=== PATIENT | female | born 1995 | race Hispanic/Latino ===

== ENCOUNTER 2017-04-22 10:00 | Inpatient (IN) | payer OTHER ==
[~2017-04-22] VITALS: Ht 149.9 cm; Wt 102.5 kg
[2017-04-22 11:25] LABS: Mean Corpuscular Hemoglobin 30.1 pg (27.0-35.0); Mean Corpuscular Volume 87.6 fL (81-100)
[2017-04-22] MEDS ORDERED: Lactated Ringer's 1,000 ML IV PRN (13:47)
--- NOTE | 2017-04-22 13:47 | DRSVH ---
PROCEDURE: US OB FOLLOW UP GROWTH AND BIOPHYSICAL PROFILE AND UMBILICAL DOPPPLER INDICATIONS: 21 year-old female with polyhydramnios. OUTSIDE/PRIOR DATING DATA: Last menstrual period (LMP): August 10, 2016. LMP-based estimated date of delivery (PARTHA): May 17, 2017. First dating scan (date and location): October 08, 2016 at [facility]. Estimated date of delivery (PARTHA) from first dating scan: May 12, 2017. TECHNIQUE: Real-time scanning was performed of the fetus, with image documentation and biometric alex surements. Biophysical profile was also obtained. COMPARISON: [facility], US, US OB FU GROWTH+BPP+UMB DOP, 04/11/2017, 22:33. [facility] Ultrasound, US, US OB REEVAL INCOMP ANATMY LTD, 03/04/2017, 11:36. [facility] s Ultrasound, US, US OB REEVAL INCOMP ANATMY LTD, 01/18/2017, 8:45. [facility] Ultrasoun d, US, US OB>14 WKS ANATOMY COMP, 01/03/2017, 11:49. [facility], US, US OB<14 WKS+OB HANNA SVAG, 10/08/2016, 9:56. FINDINGS: General: A single living intrauterine gestation is present. Presentation: Vertex. Placenta: Placental position is anterior and right, without previa. OB-BUNCHER HAND Ultrasound Procedure Report Summary Fetus Summary Estimated Gestational Age by first dating scan: 37 weeks, 1 day Composite Gestational Age by present scan: 38 weeks, 0 days Estimated Weight (EFW): 3533 g EFW percentile rank: 89 % Heart Rate: 149 bpm Findings(Amniotic Sac) Amniotic Fluid Index: 21.90 cm Pelvis and Uterus Cervix Length (Mean): Obscured by cranium. Biometry BiometryGroup Biparietal Diameter (Mean): 8.97 cm Gestational Age (BPD): 36 weeks, 2 days Head Circumference (Mean): 32.93 cm Gestational Age (HC): 37 weeks, 3 days Abdominal Circumference (Mean): 35.44 cm Gestational Age (AC): 39 weeks, 2 days Femur Length (Mean): 7.56 cm Gestational Age (FL): 38 weeks, 5 days Biophysical Profile Tone: 2 Gross Body Movement: 2 Breathin Amniotic Fluid Volume: 2 Biophysical Profile Sum Score: 8 Findings(Pelvic Vascular Structure) Umbilical Artery S/D Ratio: 2.0-2.5. IMPRESSION: 1. Single living intrauterine gestation demonstrates appropriate interval growth. Estimated elpidio ght is now at the 89th percentile for gestational age. 2. Amniotic fluid index is now within the upper normal range at 22 cm. 3. Fetus scores 8 of 8 points biophysical profile. 4. Normal umbilical artery Doppler interrogation, with preserved maternal diastolic flow to the fetus . Dictated by: Ethan Enriquez M.D. on 04/22/2017 at 13:39 Approved by: Ethan Enriquez M.D. on 04/22/2017 at 13:45
[2017-04-22] MEDS ORDERED: Ondansetron 2 mg/mL 2 mL Inj IVPUSH PRN (13:50)
[2017-04-22] MEDS ORDERED: Carboprost 250 mCg/mL Inj IM PRN (13:50)
[2017-04-22] MEDS ORDERED: Sodium Chloride LOK Flush 10 mL Syringe IVFLUSH PRN (13:50)
[2017-04-22] MEDS ORDERED: Hemorrhage Kit, Post Partum XX ONE (13:50)
[2017-04-22] MEDS ORDERED: MAGNESIUM SULF IV ONE ×2 (13:50→15:05)
[2017-04-22] MEDS ORDERED: Methylergonovine 0.2 mg/mL Inj IM PRN (13:50)
[2017-04-22] MEDS ORDERED: Oxytocin 30 Units/500 mL LR 30 UNITS in IV Premix 1 EACH IV PRN (13:50)
[2017-04-22] MEDS ORDERED: Oxytocin 10 Unit/mL Inj IM PRN (13:50)
[2017-04-22] MEDS ORDERED: [UNRECOGNIZED DRUG - OTHER] IV ONE ×2 (13:50→15:05)
--- NOTE | 2017-04-22 14:29 | PCM.HPOB ---
Subjective Date of Service: Apr 22, 2017 Referring Provider: Admitting Physician: Sebastian Garcia MD Primary Care Physician: Nopcp Attending Physician: Sebastian Garcia MD Chief Complaint Induction of labor due to mild pre-eclampsia History of Present History of Present Illness Patient is a 21 y.o. F , LMP 08/10/17, PARTHA 05/17/17 at [id number] admitted for induction of labor due to severe pre-eclampsia. History of major depression previously on Lamictal and prozac, patient restarted prozac 20 mg at 28 wks. Presented to [facility] 03/04/17 at 29wk for dizziness and noted to be pre- eclamptic. Started propranolol at 35wk for Bp 150's/110's, 35 wk US showed polyhydramnios FRANNIE 33, EFW 15% and induction scheduled for 37 weeks. Today patient presented to [facility] with complaints of headache, elevated BP 160's/80 's, prot/cr ration 1.56, random protein 86, Cr 0.5, Wct 17, hgb 11.9 hct 34.7. Decision made to admit patient to [facility] for induction of labor and monitoring OB History: (2), Para (0), (1), Living (0) Obstetrical Complications: Pre-eclampsia Past Medical History Obstetrical History: One prior SAB Gynecologic History: No history of STI last pap normal Medical History: Major depressive disorder Surgical History: None reported Social History: lives with family Hx Tobacco Use: Yes Smoking Status: Former Smoker (10 pk/yrs) Hx Alcohol Use: No Hx Substance Use: No Past Family History Family History family history of HTN,DM, hypercholesteremia Living Arrangement: with Family Genetic Screening/Counseling Genetic Screening/Counseling: Negative Review of Systems Constitutional: Y: Dizziness, Malaise, Change of appitite, Chills Eyes: Resports: Blurred Vision, Vision Changes ENT: Denies: Ear Discharge, Ear Pain Cardiovascular: Denies: Chest Pain, Edema, Orthopnea Respiratory: Denies: Cough, Cough with bloody sputum, Pleuritic Chest Pain Gastrointestinal: Reports: Nausea, Denies: Abdominal Pain, Epigastric pain, Heartburn, Vomiting Genitourinary: Reports: Hematuria, Denies: Dysuria Musculoskeletal: Denies: Redness, Swelling Skin/Breasts: Denies: Bruising Neurological: Reports: Dizziness, Other (headache) Medications Home medications Prozac 20 mg vitamin Propranolol Allergy Coded Allergies: No Known Allergies (Verified Allergy, Unknown, 05/01/17) Exam Vital Signs HR 80 BP 166/77 Exam FHR 140 moderate variability, reactive category I Constitutional: Well-developed, Well-nourished HEENT: Atraumatic, PERRLA, EOMI, Scleral Anicteric Lungs: Clear to Percussion, Normal Air Movement Heart: Regular Rate/Rhythm, Normal S1, Normal S2, No Murmurs/Rubs/Gallops Abdomen: Gravid (consistent with ), Normal bowel sounds Extremities: Pulses Palpable x4, Warm, Edema (up to knee non pitting) Neurological/Psychiatric: Oriented X3, Cooperative Additional Information Dilation 1 cm Effacement 60 station -4 Labs/Diagnostics Labs hgb 14.3 hct 42.4 rubella immune varicella immune RPR non ractive Hep B negative HIV neg hep C neg THS 0.502 A1C 5.6 UA neg Ultra Sound 04/22/17 Presentation Vertex Placenta anterior right FRANNIE 22 BPP 03/22 EFW 89% 3533 g Lab/Diagnostic Information Laboratory Tests 72 Hours Test 04/22/17 11:19 White Blood Count 17.9th/mm3 (3.8-10.1) Red Blood Count 3.96mil/mm3 (3.90-5.20) Hemoglobin 11.9g/dL (12.0-15.6) Hematocrit 34.7% (35.0-46.0) Mean Corpuscular Volume 87.6fL (81-100) Mean Corpuscular Hemoglobin 30.1pg (27.0-35.0) Mean Corpuscular Hemoglobin Concent 34.3% (32.0-37.0) Red Cell Distribution Width 14.5% (12.3-15.4) Platelet Count 203bil/L (150-400) Hematology Comments Urine Random Creatinine 55mg/dL (16-392) Urine Random Total Protein 86mg/dL (0-15) Urine Protein/Creatinine Ratio 1.56 (0-200) Blood Urea Nitrogen 10mg/dL (6-20) Creatinine 0.50mg/dL (0.57-1.00) Uric Acid 5.8mg/dL (2.6-7.2) Aspartate Amino Transf (AST/SGOT) 15U/L (0-50) Alanine Aminotransferase (ALT/SGPT) 11U/L (0-32) Maternal Blood Type: O (postive) Hx Rho(D) Immune Globulin: No Group B Strep Results: Negative Previous with GBS: No OB Intrapartum Assessment/Plan Assessment Patient is a 21 y.o. F , LMP 08/10/17, PARTHA 05/17/17 at [id number] admitted for induction of labor due to severe pre-eclampsia at 36 weeks 3 days with active symptoms Problems: (1) Severe pre-eclampsia Plan: Admit to [facility] for induction of labor due to severe pre-eclampsia Start IV IVF LR 125 mls/hr Start IV magnesium 6 gm bolus Continue IV mag 2 gm every 2 hours Hypertensive protocol in place Labetalol 10 mg IV, if sustained elevated BP call provider Tylenol 625 mg Q8 pain Consult placed for epidural Start induction with Cytotec, cervix not favorable for Pitocin Cytotec 25 mg intravaginally every 4 hours Vitals Q4 Status: Resolved ICD Code: O14.10 Attending Statement The patient was seen and examined together with Dr. Ga Raines on 04/22/2017 and I agree with the history, exam and plan as outlined in the note above. GA RAINES DO Apr 22, 2017 14:29 Sebastian Garcia MD May 02, 2017 13:50
[2017-04-22] MEDS ORDERED: Magnesium Sulf 2 Gm/50mL Water 2 GM in IV Premix 1 EACH IV SCH ×2 (14:30→16:30)
[2017-04-22] MEDS ORDERED: hydrALAZINE 20 mg/mL Inj IVPUSH PRN (14:50)
[2017-04-22] MEDS ORDERED: Calcium GLUCOnate 10% (Gm) 1 Gm/10 mL Inj IV PRN (15:05)
[2017-04-22] MEDS: Lactated Ringer's 1,000 ML IV SCH (15:19)
[2017-04-22] MEDS: Magnesium Sulf 20 Gm/500mL H2O 20 GM in IV Premix 1 EACH IV SCH (15:49)
[2017-04-22] MEDS: Misoprostol 25 mCg/0.25 Tablet VAGINAL SCH ×2 (15:56→20:56)
[2017-04-23] MEDS: Misoprostol 25 mCg/0.25 Tablet VAGINAL SCH ×5 (01:25→13:50)
[2017-04-23] MEDS: Magnesium Sulf 20 Gm/500mL H2O 20 GM in IV Premix 1 EACH IV SCH ×3 (01:26→19:44)
[2017-04-23] MEDS: Lactated Ringer's 1,000 ML IV SCH ×4 (05:47→18:08)
[2017-04-23] MEDS: Labetalol 5 mg/mL 20 mL Inj IV PRN ×2 (09:46→10:05)
[2017-04-23] MEDS ORDERED: Magnesium Sulf 20 Gm/500mL H2O 20 GM in IV Premix 1 EACH IV SCH (10:40)
[2017-04-23] MEDS ORDERED: Calcium GLUCOnate 10% (Gm) 1 Gm/10 mL Inj IV PRN (10:40)
--- NOTE | 2017-04-23 11:50 | PROG NOTE ---
[address] [address] PROGRESS NOTE PATIENT: QUENTIN KELSEY : 1995 MR#: [id number] ADMIT: 04/22/2017 JOB ID: [id number] DATE: 04/23/2017 CHIEF DIAGNOSIS: Induction of labor at 36 weeks and 4 days for severe preeclampsia. HISTORY OF PRESENT ILLNESS: The patient is 21-year-old, 2, para 0-0-1-0, at 36 weeks and 4 days gestational age by LMP confirmed by first trimester ultrasound, admitted by Dr. Garcia for induction of labor secondary to severe preeclampsia by blood pressure criteria. also complicated with the followin- history of polyhydramnios with amniotic fluid index (FRANNIE) of 33 cm at 35 weeks. Follow up FRANNIE was 21.9 on April 22, 2017. 2- Morbid obesity with a calculated BMI of 45.6 today. The patient labor induction started on April with Cytotec for cervical ripening. First Cytotec was inserted at 1610. At the time I examined the patient this morning her Shirley score was five. Cervical ripening balloon inserted after patient consented verbally. PHYSICAL EXAMINATION: Vital signs are 142/90 for blood pressure, respirations are 20, pulse is 86, pulse ox is 97% on room air. Temperature 36.6 degrees centigrade this morning. Heart is regular rate and rhythm. Positive S1, S2. Lungs: Clear to auscultation bilaterally upper and lower zones. Abdomen: No right upper quadrant tenderness. Gravid uterus. Nondistended abdomen. Positive bowel sounds. Deep tendon reflexes are 3+ upper, 3+ lower. No clonus. Cervical exam is 1 cm dilated, 70% effaced, -4 station, medium consistency, mid position. Shirley score=5. Patient verbally consented for cervical ripening balloon. Balloon inserted. 80 CC of normal saline injected in uterine balloon , 80cc of normal saline injected into vaginal balloon. the patient tolerated the cervical ripening balloon insertion well. * heart tracing is showing baseline of 130 beats per minute, positive accelerations, no decelerations, moderate variability, category 1 heart tracing. while patient receiving 2 g of magnesium sulfate per hour for seizure prophylaxis she had persistent elevated blood pressures at 178/101. The patient received one dose of 20 mg of labetalol IV , repeat blood pressure in 10 minutes was 170/97 so patient received second dose of IV Labetalol 40mg . Blood pressure in 10 minutes was 142/98. The decision was made to increase her magnesium sulfate maintenance dose to 3 gram/hour as well. LABORATORY: H and H is 11.9 and 34.7 from yesterday labs. Urine protein/creatinine ratio is 1.56. ALT and AST within normal limits; AST is 15, ALT is 11. Creatinine is 0.50. Uric acid 5.8. Platelets are 203. White blood count is 17.9. These are labs from yesterday at 11:19 a.m. *Ultrasound on April 22, 2017, showed estimated weight 3533 g, 89th percentile for growth. Average gestational age 38 weeks and 0 days. Vertex presentation. FRANNIE was 21.9 cm. ASSESSMENT AND PLAN: The Patient is 21-year-old, 2, para 0-0-1-0, at 36 weeks four days gestational age by last menstrual period, confirmed by first trimester ultrasound, admitted for induction of labor secondary to severe preeclampsia by blood pressure criteria. 1. Labor induction started with Cytotec, followed with cervical ripening balloon. consider Pitocin after balloon is out. 2. Increase magnesium sulfate maintenance dose to 3 g/hour due to uncontrolled blood pressure that required IV labetalol. 3. Check magnesium level and preeclampsia labs every 12 hours. 4. Category 1 heart tracing. Will consider internal monitoring if indicated. 5. Discussed intrapartum analgesia options with the patient. She is planning for an epidural analgesia, anaesthesia notified. 6. GBS cultures negative on April 13, 2017. 7. Continue with labetalol 200 mg p.o. dose every 12 hours. All the above was discussed in details with the patient, who agreed to the plan. [facility]
[2017-04-23] MEDS ORDERED: Lactated Ringer's 500 ML IV ONE (16:48)
[2017-04-23] MEDS ORDERED: EPHEDrine Sulfate 50 mg/mL Inj IVPUSH PRN (16:50)
[2017-04-23] MEDS ORDERED: Atropine 1 mg/10 mL (Code) Syringe IVPUSH PRN (16:50)
[2017-04-23] MEDS ORDERED: Ondansetron 2 mg/mL 2 mL Inj IVPUSH PRN (16:50)
--- NOTE | 2017-04-23 17:36 | PCM.HPANE ---
Patient Data Surgeon Admitting Provider:Sebastian Garcia MD Attending Provider:Sebastian Garcia MD Primary Care Physician:Nopcp Other Provider: Reason for Visit Induction INDUCTION Ht/WT & BMI Body Mass Index Allergies Coded Allergies: No Known Allergies (Unverified Allergy, Unknown, 04/11/17) Past Anesthesia History Anesthesia History: Denies:: Abnormal Airway, Anesthesia Reactions, Difficult Intubation, Fam Anesthesia Reaction, Fam Malignant Hypertherm, Malignant Hyperthermia Diabetes History Hx Diabetes?: No MRSA MRSA: No Medications Hypertension Medication: Yes Home Meds Incl Beta Irwin: Yes Previous Beta Irwin Dose >24: Previous Dose <24 Hours History History of ENT Problems?: No HEENT History: Denies:: Abnormal Airway Cataracts Difficult Intubation Dysphagia Glaucoma Hearing Problem Sinus Problem TMJ Denture Type: None Teeth Condition: Within Normal Limits Hx of Heart Problems?: No Cardiovascular History: Positive for:: Hypertension (with ) Hx of Respiratory Problem?: No Respiratory History: Denies:: Asthma COPD Chest Surgery Cough Dyspnea Emphysema Hemoptysis Oxygen Administration Pneumonia Pulmonary Embolism Tuberculosis Use of C-PAP Machine Use of Inhalers / NEBS Hx Neurologic Problems?: No Hx of GI Problems?: No Hx of Problems?: No Female Hx: Positive for:: Currently Hx Musculoskeletal Problems?: No Hx of Psycho/Social Problems?: Yes (on prozac) Hx Surgeries?: No Hx Any Other Health Problems?: No Hx Alcohol Use: NoHx Substance Use: No Smoking Status: Former Smoker (10 pk/yrs) Stop/Bang GORGE Risk Assessment: Low Risk, <3 Yes Risk Assessment Category Category 1A: Patient has history of documented sleep apnea, and HAS NOT received any narcotic, sedative or anesthesia administration during this stay. Category 1B: Patient has history of documented sleep apnea, and HAS received any narcotic , sedative or anesthesia administration during this stay Category 2: Patient has SUSPECTED Obstructive Sleep Apnea, and HAS received any narcotic , sedative or anesthesia administration during this stay. Category 3: Patient has SUSPECTED Obstructive Sleep Apnea and HAS NOT received narcotic, sedative or anesthesia administration during this stay. Category 4: Outpatient in Procedural Areas with known sleep apnea or who screen positive for High Risk via the STOP/BANG questionnaire. Exam Exam General Appearance: Oriented X3, Cooperative HEENT/AIRWAY: MP 2 Lungs: Clear to Percussion, Normal Air Movement Heart: Regular Rate/Rhythm, Normal S1, Normal S2, No Murmurs/Rubs/Gallops Meds/Labs/Diagnostics Admission Meds Current Medications Labetalol HCl (Normodyne) 200 mg BID PO Last administered on 04/23/17t 07:41; Start 04/22/17 at 20:30; Stop 04/23/17 at 10:59; Status DC Labs Test 04/22/17 11:19 White Blood Count 17.9th/mm3 (3.8-10.1) Red Blood Count 3.96mil/mm3 (3.90-5.20) Hemoglobin 11.9g/dL (12.0-15.6) Hematocrit 34.7% (35.0-46.0) Mean Corpuscular Volume 87.6fL (81-100) Mean Corpuscular Hemoglobin 30.1pg (27.0-35.0) Mean Corpuscular Hemoglobin Concent 34.3% (32.0-37.0) Red Cell Distribution Width 14.5% (12.3-15.4) Platelet Count 203bil/L (150-400) Hematology Comments Urine Random Creatinine 55mg/dL (16-392) Urine Random Total Protein 86mg/dL (0-15) Urine Protein/Creatinine Ratio 1.56 (0-200) Blood Urea Nitrogen 10mg/dL (6-20) Creatinine 0.50mg/dL (0.57-1.00) Uric Acid 5.8mg/dL (2.6-7.2) Aspartate Amino Transf (AST/SGOT) 15U/L (0-50) Alanine Aminotransferase (ALT/SGPT) 11U/L (0-32) Plan Impression Patient chart reviewed, patient interviewed and anesthestic plan with risks, benefits, and alternatives discussed, and informed consent obtained. NPO per Anesth. Guidelines: Yes ASA Physical Status: ASA3 Severe Disease Anesthetic Plan: Epidural Bene/Risks/Altern/Consents: Yes HP Complete Prior to Induction: Yes Reji Brian MD Apr 23, 2017 16:48
[2017-04-23 18:38] LABS: BASOPHILS % (AUTO) 0.1 % (0-3); EOSINOPHILS % (AUTO) 0.2 % (0-5); MONOCYTES % (AUTO) 5.5 % (4-12); Mean Corpuscular Hemoglobin 29.6 pg (27.0-35.0); Mean Corpuscular Volume 87.9 fL (81-100); NEUTROPHILS % (AUTO) 85.1 % (40-74); Platelet Count 197 bil/L (150-400)
[2017-04-23 19:33] LABS: Magnesium 8.4 mg/dL (1.6-2.6)
[2017-04-23] MEDS ORDERED: Oxytocin 30 Units/500 mL LR 30 UNITS in IV Premix 1 EACH IV PRN (22:00)
[2017-04-24] MEDS ORDERED: Sodium Chloride LOK Flush 10 mL Syringe IVFLUSH SCH (00:30)
--- NOTE | 2017-04-24 00:38 | PROG NOTE ---
[address] [address] PROGRESS NOTE PATIENT: QUENTIN KELSEY : 1995 MR#: [id number] ADMIT: 04/22/2017 JOB ID: [id number] DATE: 04/23/2017 TIME: 9:40 p.m. SUBJECTIVE: The cervical ripening balloon was removed after 12 hours of insertion. The balloon was pulled out of the cervix easily. Cervix after the balloon was out was 5 cm dilated, 70% effaced, -3 station, vertex presentation. Intrauterine pressure catheter and scalp electrode were inserted for internal monitoring. Clear fluid was leaking. OBJECTIVE: Vital signs are 138/74 for blood pressure. Respirations are 16. Pulse is 94. Temperature 36.3 degrees centigrade. Pulse ox is 93% on room air. Heart is regular rate and rhythm. Positive S1, S2. Lungs clear to auscultation bilaterally. Abdomen: Gravid uterus. No right upper quadrant tenderness. Perineum, cervix as the above, 5 cm dilated, 70% effaced, -3 station after removal of the balloon. Lower extremities: No calf tenderness appreciated bilaterally. Deep tendon reflexes are 2+ upper, 2+ lower. No clonus. heart tracing is showing baseline of 130 beats per minute, positive accelerations, no decelerations, moderate variability. LABORATORY DATA: The patient's magnesium sulfate dropped to 2 g/h from 3 g/h due to mag level of 8.4, and blood pressure values where acceptable, none was at severe range that required IV antihypertensive medications since decreasing the dose of the magnesium maintenance dose to 2 g/h. ASSESSMENT/PLAN: The patient is 21-year-old, 2, para 0-0-1-0, at 36 weeks and 4 days gestational age. Admitted for induction of labor secondary to severe preeclampsia by blood pressure criteria. 1. Blood pressure controlled with labetalol p.o. 200 mg every 12 hours, plus magnesium sulfate for seizure prophylaxis at 2 g/h. 2. Epidural adequate for pain control number. 3. GBS cultures negative. 4. Category 1 heart tracing. scalp electrode inserted for morbid obesity and initiation of Pitocin. Induction of labor will continue with Pitocin. All of the above discussed in detail with the patient who agreed to the plan. Please note that the last preeclampsia labs at 1830 showed hemoglobin of 12.5, hematocrit 37.2, platelets 197, white blood count 15.8. BUN 10, creatinine 0.69, sodium 134, potassium 4.2, chloride 97, carbon dioxide 20, glucose 94. AST 16, ALT 10, alkaline phosphatase 143.
[2017-04-24] MEDS: fentaNYL 2 mCg/mL-Bupiv 0.125% 100 ML EPIDURAL SCH ×2 (02:00→08:41)
[2017-04-24] MEDS: Magnesium Sulf 20 Gm/500mL H2O 20 GM in IV Premix 1 EACH IV SCH (03:09)
[2017-04-24 07:13] LABS: BASOPHILS % (AUTO) 0.1 % (0-3); EOSINOPHILS % (AUTO) 0.1 % (0-5); MONOCYTES % (AUTO) 4.8 % (4-12); Mean Corpuscular Hemoglobin 29.7 pg (27.0-35.0); Mean Corpuscular Volume 87.4 fL (81-100); NEUTROPHILS % (AUTO) 87.7 % (40-74); Platelet Count 202 bil/L (150-400)
[2017-04-24 08:18] LABS: Magnesium 7.7 mg/dL (1.6-2.6)
[2017-04-24] MEDS: Lactated Ringer's 1,000 ML IV SCH ×2 (09:29→20:07)
[2017-04-24] MEDS ORDERED: Sodium Citrate-Citric Acid 15 mL Solution ONE (11:10)
[2017-04-24] MEDS ORDERED: CeFAZolin 2 Gm/50 mL D5W Duplex Bag IV ONE (11:10)
--- NOTE | 2017-04-24 11:58 | PCM.HPANE ---
Patient Data Surgeon Admitting Provider:Sebastian Garcia MD Attending Provider:Sebastian Garcia MD Primary Care Physician:Nopcp Other Provider: Reason for Visit Induction INDUCTION Ht/WT & BMI Body Mass Index Allergies Coded Allergies: No Known Allergies (Unverified Allergy, Unknown, 04/11/17) Past Anesthesia History Anesthesia History: Denies:: Abnormal Airway, Anesthesia Reactions, Difficult Intubation, Fam Anesthesia Reaction, Fam Malignant Hypertherm, Malignant Hyperthermia Diabetes History Hx Diabetes?: No MRSA MRSA: No Medications Hypertension Medication: Yes Home Meds Incl Beta Irwin: Yes Previous Beta Irwin Dose >24: Previous Dose <24 Hours History History of ENT Problems?: No HEENT History: Denies:: Abnormal Airway Cataracts Difficult Intubation Dysphagia Glaucoma Hearing Problem Sinus Problem TMJ Denture Type: None Teeth Condition: Within Normal Limits Hx of Heart Problems?: Yes Cardiovascular History: Positive for:: Hypertension (with ) Denies:: AICD Abdominal Aortic Aneurism Atrial Fibrillation Cardiac Surgery Chest Pain Congestive Heart Failure Coronary Artery Disease Edema Heart Murmur Irregular Heartbeat Pacemaker Peripheral Vascular Rheumatic Fever Thrombophlebitis Valvular Heart Disease Hx of Respiratory Problem?: No Respiratory History: Denies:: Asthma COPD Chest Surgery Cough Dyspnea Emphysema Hemoptysis Oxygen Administration Pneumonia Pulmonary Embolism Tuberculosis Use of C-PAP Machine Use of Inhalers / NEBS Hx Neurologic Problems?: No Hx of GI Problems?: No Hx of Problems?: No Female Hx: Positive for:: Currently Hx Musculoskeletal Problems?: No Hx of Psycho/Social Problems?: Yes (on prozac) Hx Surgeries?: No Hx Any Other Health Problems?: No Hx Diabetes: No Hx Alcohol Use: NoHx Substance Use: No Smoking Status: Former Smoker (10 pk/yrs) Stop/Bang Treated for Sleep Apnea?: No Do You Have a CPAP Machine?: No GORGE Risk Assessment: Low Risk, <3 Yes Risk Assessment Category Category 1A: Patient has history of documented sleep apnea, and HAS NOT received any narcotic, sedative or anesthesia administration during this stay. Category 1B: Patient has history of documented sleep apnea, and HAS received any narcotic , sedative or anesthesia administration during this stay Category 2: Patient has SUSPECTED Obstructive Sleep Apnea, and HAS received any narcotic , sedative or anesthesia administration during this stay. Category 3: Patient has SUSPECTED Obstructive Sleep Apnea and HAS NOT received narcotic, sedative or anesthesia administration during this stay. Category 4: Outpatient in Procedural Areas with known sleep apnea or who screen positive for High Risk via the STOP/BANG questionnaire. Low Risk, <3 Yes Exam Exam General Appearance: Oriented X3, Cooperative HEENT/AIRWAY: MP 2 Lungs: Clear to Percussion, Normal Air Movement Heart: Regular Rate/Rhythm, Normal S1, Normal S2, No Murmurs/Rubs/Gallops Meds/Labs/Diagnostics Admission Meds Current Medications Labetalol HCl 200 mg 200 mg Q12H PO Last administered on 04/24/17 09:45; Start 04/23/17 at 20:30 Lactated Ringer's (Lr) 1,000 ml @ 125 mls/hr Q8H IV Last administered on 09:29; Start 04/23/17 at 16:48; Stop 04/24/17 at 16:49 Citric Acid/ Sodium Citrate (Bicitra) 30 ml STK-MED ONCE .ROUTE Last administered on 04/24/17 11:15; Start 04/24/17 at 11:10; Stop 04/24/17 at 11:11 ; Status DC Labs Test 04/22/17 11:19 04/24/17 06:55 Hematology Comments Urine Random Creatinine 55mg/dL (16-392) Urine Random Total Protein 86mg/dL (0-15) Urine Protein/Creatinine Ratio 1.56 (0-200) Uric Acid 5.8mg/dL (2.6-7.2) White Blood Count 17.9th/mm3 (3.8-10.1) Red Blood Count 4.38mil/mm3 (3.90-5.20) Hemoglobin 13.0g/dL (12.0-15.6) Hematocrit 38.3% (35.0-46.0) Mean Corpuscular Volume 87.4fL (81-100) Mean Corpuscular Hemoglobin 29.7pg (27.0-35.0) Mean Corpuscular Hemoglobin Concent 33.9% (32.0-37.0) Red Cell Distribution Width 14.7% (12.3-15.4) Platelet Count 202bil/L (150-400) Neutrophils (%) (Auto) 87.7% (40-74) Lymphocytes (%) (Auto) 7.1% (14-46) Monocytes (%) (Auto) 4.8% (4-12) Eosinophils (%) (Auto) 0.1% (0-5) Basophils (%) (Auto) 0.1% (0-3) Sodium Level 133mEq/L (134-144) Potassium Level 5.1mEq/L (3.5-5.2) Chloride Level 95mEq/L (97-108) Carbon Dioxide Level 19mmol/L (18-29) Blood Urea Nitrogen 12mg/dL (6-20) Creatinine 0.75mg/dL (0.57-1.00) Estimat Glomerular Filtration Rate 143mL/min (>59) Glucose Level 104mg/dL (60-99) Calcium Level 7.7mg/dL (8.5-10.1) Magnesium Level 7.7mg/dL (1.6-2.6) Total Bilirubin 0.4mg/dL (0.0-1.2) Aspartate Amino Transf (AST/SGOT) 20U/L (0-50) Alanine Aminotransferase (ALT/SGPT) 9U/L (0-32) Alkaline Phosphatase 157U/L (25-150) Total Protein 5.9g/dL (6.4-8.4) Albumin 3.1g/dL (3.4-5.0) Plan Impression Patient chart reviewed, patient interviewed and anesthestic plan with risks, benefits, and alternatives discussed, and informed consent obtained. NPO per Anesth. Guidelines: Yes ASA Physical Status: ASA3 Severe Disease Anesthetic Plan: SAB Bene/Risks/Altern/Consents: Yes HP Complete Prior to Induction: Yes Jose Grady MD Apr 24, 2017 11:58
[2017-04-24] MEDS ORDERED: Bupivacaine-MPF 0.75% 30 mL Inj ONE (12:24)
[2017-04-24] MEDS ORDERED: Ondansetron 2 mg/mL 2 mL Inj ONE (12:24)
[2017-04-24] MEDS ORDERED: MetoCLOpramide 5 mg/mL 2 mL Inj ONE (12:24)
[2017-04-24] MEDS ORDERED: Phenylephrine/NS 100 mCg/mL 10 mL Syringe IVPUSH ONE (12:24)
[2017-04-24] MEDS ORDERED: Morphine PF 1 mg/mL 10 mL Inj ONE (12:24)
[2017-04-24] MEDS ORDERED: Dexamethasone 4 mg/mL Inj ONE (12:24)
[2017-04-24] MEDS ORDERED: EPHEDrine Sulfate 50 mg/mL Inj IVPUSH PRN (13:00)
[2017-04-24] MEDS ORDERED: Phenylephrine/NS-PF 100 mCg/mL 5 mL Syringe IVPUSH PRN (13:00)
[2017-04-24] MEDS ORDERED: Dexamethasone 4 mg/mL Inj IVPUSH PRN (13:00)
[2017-04-24] MEDS ORDERED: fentaNYL-PF 50 mCg/mL 2 mL Inj IVPUSH PRN (13:00)
[2017-04-24] MEDS ORDERED: Atropine 0.4 mg/mL Inj IV PRN (13:00)
[2017-04-24] MEDS ORDERED: Morphine PF 1 mg/mL 10 mL Inj EPIDURAL ONE (13:00)
[2017-04-24] MEDS ORDERED: Ondansetron 2 mg/mL 2 mL Inj IVPUSH PRN (13:00)
[2017-04-24] MEDS ORDERED: HYDROmorphone 1 mg/mL Inj IVPUSH PRN (13:00)
[2017-04-24] MEDS ORDERED: MetoCLOpramide 5 mg/mL 2 mL Inj IVPUSH PRN (13:00)
[2017-04-24] MEDS ORDERED: Sodium Chloride LOK Flush 10 mL Syringe IVFLUSH PRN (13:30)
[2017-04-24] MEDS ORDERED: Carboprost 250 mCg/mL Inj IM PRN (13:30)
[2017-04-24] MEDS ORDERED: Hemorrhage Kit, Post Partum XX ONE (13:30)
[2017-04-24] MEDS ORDERED: Methylergonovine 0.2 mg/mL Inj IM PRN (13:30)
[2017-04-24] MEDS ORDERED: Oxytocin 10 Unit/mL Inj IM PRN (13:30)
[2017-04-24] MEDS ORDERED: Acetaminophen IV 1,000 MG in IV Premix 1 EACH IV PRN (13:30)
[2017-04-24] MEDS ORDERED: Oxytocin 30 Units/500 mL LR 30 UNITS in IV Premix 1 EACH IV PRN (13:30)
[2017-04-24] MEDS ORDERED: Lactated Ringer's 1,000 ML IV SCH (13:30)
[2017-04-24] MEDS ORDERED: LANOlin HPA 7 Gm Ointment TOPICAL PRN (13:30)
[2017-04-24] MEDS ORDERED: hydrOXYzine Pamoate 25 mg Capsule PO PRN (13:30)
--- NOTE | 2017-04-24 13:30 | HP PRE OP ---
[address] [address] PREOPERATIVE HISTORY AND PHYSICAL PATIENT: QUENTIN KELSEY : 1995 MR#: [id number] ADMIT: 04/22/2017 JOB ID: [id number] DATE: 04/24/2017 HISTORY: The patient is a 21-year-old, 3, para 0-0-2-0, whose last menstrual period was August 10, 2017. Estimated due date is May 17, 2017. Was admitted to Labor and Delivery at 36 weeks and 3 days because of severe preeclampsia. Other significant history includes major depression, for which she is taking Lamictal and Prozac. She has had nonreactive nonstress testing on admission, April 22, 2017, and the ultrasound showed polyhydramnios with amniotic fluid index 33. Estimated weight is 50th percentile. The patient's blood pressure at admission was 160/80. Her protein/creatinine ratio was 1.56. The patient's cervical finding was 1 cm, 40% effacement, high station. She received four doses of Cytotec 4 hours apart. Following that, she had a cervical ripening balloon that was placed at 9:30 a.m., April 23, 2017, it came out 12 hours later. At that time, the patient was found to be 5 cm dilated. She had spontaneous rupture of membranes at 7 a.m., April 23, 2017. The patient was started on magnesium sulfate shortly after admission, received more than 36 hours of magnesium. She has been induced for 48 hours with ruptured membranes for 27 hours, current rate of Pitocin is 18 milliunits per minute, and there is no significant cervical change on the exam. She is still 7 cm dilated, 100% effaced, and -3 station. The contractions are adequate. Intrauterine pressure catheter in place. Internal monitoring is in place as well. Management options were discussed with the patient including continuous induction and expectant management versus delivery for failure to progress. The patient was also explained the risks of prolonged rupture of membranes including chorioamnionitis and effect on the baby was low scores. She prefers to proceed with delivery. MEDICAL HISTORY: Major depressive disorder. SURGICAL HISTORY: Unremarkable. SOCIAL HISTORY: Patient denies smoking, alcohol, or illicit recreational drug use. She is a former smoker. No smoking in current . FAMILY HISTORY: Hypertension, diabetes. CURRENT MEDICATIONS: 1. Prozac 20 mg p.o. daily. 2. vitamins. 3. Propranolol. ALLERGIES: NKDA. PHYSICAL EXAMINATION: Vital signs: Blood pressure 125/74, temperature 36.5, pulse 95, oxygen saturation is 97% on room air. heart rate tracing is reactive, baseline 140, moderate variability. Constitutional: Awake, alert, oriented x3. Well-developed. HEENT: PERRLA. Lungs: Clear bilaterally to auscultation. Good respiratory effort. Cardiovascular systems: Regular rate and rhythm. Normal S1 and S2. No murmurs. Abdomen is gravid, nondistended, nontender. Pelvic exam: Ruptured membranes, clear amniotic fluid, the cervix is 7 cm dilated, 100% effaced, station -3. LABORATORY: WBC count 17.9, hemoglobin 13.0, hematocrit 38.3, platelet count 102. Magnesium level 7.7. AST 20, ALT 9, alkaline phosphatase 157. ASSESSMENT AND PLAN: The patient is a 21-year-old, 3, para 0 at 36 weeks and 3 days. Admitted for severe preeclampsia. Was undergoing induction of labor for more than 48 hours, rupture of membranes for 28 hours, failure to progress, arrest of dilation. The patient has been having adequate contractions with Pitocin running at 18 milliunits per minute with no cervical change. Considering risks of chorioamnionitis and prolonged rupture of membranes, decision was made to proceed with primary low transverse delivery. The risks and benefits of the were explained to the patient, the risks including but not limited to, bleeding, infection, delayed wound healing, increased postoperative period and hospital stay, major, minor injury to the . The patient verbalized understanding of all the risks involved and informed consent was obtained. IV fluids are continued at current level. Two g of Ancef IV piggyback was administered. Bicitra was given. Anesthesiologist was notified.
--- NOTE | 2017-04-24 13:37 | PCM.ANEP1 ---
Post Anesthesia PACU Phase 1 Assessment Anesthetic Administered: SAB Level of Alertness: Awake, talking Pain: No Pain Scale Score: 4 Nausea or Vomiting: No CV Function & Hydration Stable: Yes Airway Device: Lungs: Clear to Percussion, Normal Air Movement PACU Phase 2 Assessment Patient Instructions Provided: N/A Jose Grady MD Apr 24, 2017 13:37
--- NOTE | 2017-04-24 14:20 | OP ---
[address] [address] OPERATIVE REPORT PATIENT: QUENTIN KELSEY : 1995 MR#: [id number] ADMIT: 04/22/2017 JOB ID: [id number] DATE OF SURGERY: 04/24/2017 PROCEDURE: Primary low transverse section. PREOPERATIVE DIAGNOSIS(ES): Intrauterine , 36 weeks and five days. Severe preeclampsia. Failed induction of labor. Prolonged rupture of membranes. POSTOPERATIVE DIAGNOSIS(ES): Intrauterine , 36 weeks and five days. Severe preeclampsia. Failed induction of labor. Prolonged rupture of membranes. SURGEON: Ulises Rios MD. TRUCK BODY REPAIRER: Valeriy Barnett MD. The assistance of Dr. Barnett was necessary for proper exposure and visualization of anatomic structures and assistance with delivery of the . ANESTHESIA: Epidural was dosed to a surgical level, Jose Grady MD. ESTIMATED BLOOD LOSS: 800 mL. ESTIMATED URINE OUTPUT: 250 mL. FLUIDS: 1300 mL of lactated Ringer. COMPLICATIONS: None. FINDINGS: Normal appearance of uterus and adnexa. Delivered female with Apgars 9 at one minute and 9 at five minutes. Estimated weight pending. Placenta sent to Pathology. Pathology report pending. PROCEDURE: The patient was brought to the operating room, where she underwent the dosing of the epidural anesthesia to a surgical level. The patient was placed in the dorsal supine position with a leftward tilt. She was prepped and draped in the usual surgical fashion. The patient received preoperative antibiotics. The consent was obtained for primary low transverse section. All the risks and benefits of the procedure were explained in detail. Time-out was performed verifying correct patient, correct procedure. Pfannenstiel skin incision was made with a scalpel and carried down to the underlying layer of rectus muscle fascia using scalpel. The rectus muscle fascia was incised in the midline with the scalpel and extended laterally using Ramirez scissors. The lower aspect of the incision was grasped with two Chandler clamps and the rectus muscle was from the rectus muscle fascia using Ramirez scissors. In a similar fashion, the upper aspect of the incision was grasped with two Chandler clamps and the rectus muscle fascia was from the underlying rectus muscle using Ramirez scissors. The rectus muscles were in the midline. The peritoneum was identified, tented up with two Shannan clamps, and entered sharply using Metzenbaum scissors. The peritoneal incision was laterally extended. Bladder blade was placed. Using scalpel, lower segment transverse uterine incision was made and extended laterally with the bandage scissors. The head of the was identified. The bladder blade was removed and female was atraumatically delivered. Delayed cord clamping was allowed for 40 seconds. The was handed off to the waiting oil well logger and the respiratory therapist. Cord blood was sent. The placenta was removed by the application of the fundal pressure to the uterus. Placenta was sent to Pathology. The uterus was found to be boggy, and patient received 250 mcg of Hemabate IM. Pitocin was started after the delivery of the . A total of 40 units of Pitocin was administered. The uterus became firm. It was repaired with two layers of 0 Monocryl. Good hemostasis was achieved. The pelvis was irrigated with warm normal saline and the uterus was repositioned back into the abdomen. The peritoneum was reapproximated with 3-0 Vicryl. Three interrupted 2-0 Vicryl sutures were placed to reapproximate rectus muscles. The rectus muscle fascia was closed with 0-Vicryl. Five interrupted 3-0 Vicryl sutures were placed to reapproximate Christine fascia and subcuticular tissue. The skin was closed with curtis. Hemostatic dressing was applied. The patient was repositioned back into the supine position. She tolerated the procedure well and was transferred to the recovery room in a stable condition.
[2017-04-25 06:54] LABS: Mean Corpuscular Hemoglobin 29.5 pg (27.0-35.0); Mean Corpuscular Volume 87.9 fL (81-100)
--- NOTE | 2017-04-25 07:13 | PCM.PNOBPP ---
Subjective Date of Service Apr 25, 2017 Post : Primary Ceserean Delivery Visit History Patient is a 21 y.o. F , LMP 08/10/17, PARTHA 05/17/17 at [id number] admitted for induction of labor due to severe pre-eclampsia. History of major depression previously on Lamictal and prozac, patient restarted prozac 20 mg at [address] [facility] 03/04/17 at 29wk for dizziness and noted to be pre- eclamptic. Started propranolol at 35wk for Bp 150's/110's, 35 wk US showed polyhydramnios FRANNIE 33, EFW 15% and induction scheduled for 37 weeks. Cytotec for cervical ripening. First Cytotec was inserted at 1610 04/22/17. 04/23/17 slow progression sena score noted to be 5, decision made to insert cervical ripening balloon. The cervical ripening balloon was removed after 12 hours of insertion on 04/24/17. The balloon was pulled out of the cervix easily. Cervix after the balloon was out was 5 cm dilated, 70% effaced, -3 station, vertex presentation. Intrauterine pressure catheter and scalp electrode were inserted for internal monitoring. Clear fluid was noted to be leaking. Subjective Patient examined sitting in bed. She stated that her bleeding is normal, pain is under control with ibuprofen, catheter was removed this morning and she has yet to go to the bathroom, her swelling is present but improved from yesterday, she is passing gas with good appetite. She denies fever, chills, nausea, vomiting, headache, change in vision dizziness. Lochia: Normal Pain Management: PO pain meds Gastrointestinal: Good Appetite Postop Activity: Ambulating Independently Labs Labs hgb 14.3 hct 42.4 rubella immune varicella immune RPR non reactive Hep B negative HIV neg hep C neg THS 0.502 A1C 5.6 UA neg Ultra Sound 04/22/17 Presentation Vertex Placenta anterior right FRANNIE 22 BPP 03/22 EFW 89% 3533 g Group B Strep Results: Negative Blood Type: O (postive) Labs Laboratory Tests 04/22/17 11:19: Hematology Comments 04/24/17 06:55: Neutrophils (%) (Auto) 87.7, Lymphocytes (%) (Auto) 7.1, Monocytes (%) (Auto) 4.8, Eosinophils (%) (Auto) 0.1, Basophils (%) (Auto) 0.1 04/25/17 06:35: White Blood Count 20.9, Red Blood Count 3.56, Hemoglobin 10.5, Hematocrit 31.3, Mean Corpuscular Volume 87.9, Mean Corpuscular Hemoglobin 29.5, Mean Corpuscular Hemoglobin Concent 33.5, Red Cell Distribution Width 14.5, Platelet Count 198 Creatine 1.07 Exam Vital Signs Vital Signs HR 91 BP Vital Signs: VS reviewed, stable Exam Abdomen: Fundus firm Perineum: Intact : Sparks catheter (removed 0604/25/17, no voiding at time of exam) Extremities: No cords, Normal pulses, Edema 1+, Other (clonus bilaterally, hyperreflexia b/l 3/4) Lungs: Clear to Auscultation, Normal Air Movement Heart: Regular Rate/Rhythm, Normal S1, Normal S2, No Murmurs/Rubs/Gallops General: Alert, Oriented X3 Surgical Wound : Incision General Appearence: Wound under dressing Dressing & Drainage Status: Dry & Intact, Reinforced, No Odor, Foul Odor Noted OB Post Assessment/Plan Assessment The patient is 21-year-old, 2, para 0-0-1-0, at 36 weeks and 4 days gestational age. Admitted for induction of labor secondary to severe preeclampsia by blood pressure criteria. Creatine doubled over 12 hours over 04/24 0.75 to 1.06 Morning labs WCT 20.9, H/H 10.5/31.3 Na 132 K 4.8, CL 95 CO2 21, BUN 25, Cr 1.25, gluc 130 Problems: (1) Severe pre-eclampsia Plan: Continue routine post care Tylenol 625 mg PO Q8 hrs for pain Percocet 5-325 mg PO Q4-6hrs for breakthrough pain Hold ibuprofen as creatine doubled over 8 hours 04/24/17 Repeat BMP pending at time of exam Encourage PO fluid intake Sparks catheter removed this morning Monitor strict I/O closely Vitals Q4 Repeat BMP this afternoon Consider Lasix if poor urine output Status: Resolved ICD Code: O14.10 Attending Statement Patient seen and examined- she is doing OK today, I overall, remain concerned about her BP issues, her BP has been nonsevere overnight however her Cr is quite elevated and she continues to have 3-4+ DTR and bilateral clonus, indicative of a nonresolved disease process. At this time we will monitor her BP and urine output closely and continue to trend her Cr awaiting resolution of her disease. May need to adjust BP medications if BP elevated with magnesium off. Otherwise feeling well. NITIN RAINES DO Apr 25, 2017 07:13 Charity Serrano MD May 03, 2017 12:56
[2017-04-25 07:16] LABS: Magnesium 3.3 mg/dL (1.6-2.6)
[2017-04-25] MEDS: Ascorbic Acid 500 mg Tablet PO SCH (08:44)
[2017-04-25] MEDS: oxyCODONE-Acetamin 5-325 mg Tablet PO PRN ×4 (09:53→22:58)
[2017-04-25 17:46] LABS: BASOPHILS % (AUTO) 0.1 % (0-3); EOSINOPHILS % (AUTO) 0.2 % (0-5); MONOCYTES % (AUTO) 6.9 % (4-12); Mean Corpuscular Hemoglobin 29.5 pg (27.0-35.0); Mean Corpuscular Volume 88.2 fL (81-100); NEUTROPHILS % (AUTO) 81.1 % (40-74); Platelet Count 211 bil/L (150-400)
[2017-04-25 18:12] LABS: Magnesium 2.5 mg/dL (1.6-2.6)
[2017-04-26] MEDS: oxyCODONE-Acetamin 5-325 mg Tablet PO PRN ×5 (03:08→20:32)
[2017-04-26 06:54] LABS: Mean Corpuscular Hemoglobin 29.4 pg (27.0-35.0); Mean Corpuscular Volume 90.1 fL (81-100)
--- NOTE | 2017-04-26 07:57 | PCM.DC.OB ---
Obstetrical Discharge Summary Date of Service Apr 26, 2017 Date of hospital admission Apr 22, 2017 at 13:10 Date of Discharge: Apr 26, 2017 Providers Admitting Physician: Sebastian Garcia MD Primary Care Physician: Nopmariangel Attending Physician: Sebastian Garcia MD Problems: (1) Severe pre-eclampsia Status: Acute ICD Code: O14.10 Brief History and Physical: Patient is a 21 y.o. F , LMP 08/10/17, PARTHA 05/17/17 at [id number] admitted for induction of labor due to severe pre-eclampsia. History of major depression previously on Lamictal and prozac, patient restarted prozac 20 mg at 28 wks. Presented to [facility] 03/04/17 at 29wk for dizziness and noted to be pre- eclamptic. Started propranolol at 35wk for Bp 150's/110's, 35 wk US showed polyhydramnios FRANNIE 33, EFW 15% and induction scheduled for 37 weeks. Patient presented to [facility] 04/22/17 with complaints of headache, elevated BP 160's/80's, prot/cr ration 1.56, random protein 86, Cr 0.5, Wct 17, hgb 11.9 hct 34.7. Decision made to admit patient to [facility] for induction of labor and monitoring. Patient delivered via cesarian section to healthy female 04/24/17. Post patient had elevation in creatine with gradual reduction today 0.71. Patient denies symptoms of fever, chills, nausea, vomiting, change in vision. Exam Abdomen: Fundus firm Perineum: Intact : Sparks catheter (removed 0604/25/17, no voiding at time of exam) Extremities: No cords, Normal pulses, Edema 1+, Lungs: Clear to Auscultation, Normal Air Movement Heart: Regular Rate/Rhythm, Normal S1, Normal S2, No Murmurs/Rubs/Gallops General: Alert, Oriented X3 Surgical Wound : Incision General Appearence: Wound under dressing Dressing & Drainage Status: Dry & Intact, Reinforced, No Odor, Foul Odor Noted Hospital Course: Patient is a 21 y.o. F , LMP 08/10/17, PARTHA 05/17/17 at [id number] admitted for induction of labor due to severe pre-eclampsia. History of major depression previously on Lamictal and prozac, patient restarted prozac 20 mg at 28 wks. Presented to [facility] 03/04/17 at 29wk for dizziness and noted to be pre- eclamptic. Started propranolol at 35wk for Bp 150's/110's, 35 wk US showed polyhydramnios FRANNIE 33, EFW 15% and induction scheduled for 37 weeks. Patient presented to [facility] 04/22/17 with complaints of headache, elevated BP 160's/80's, prot/cr ration 1.56, random protein 86, Cr 0.5, Wct 17, hgb 11.9 hct 34.7. Decision made to admit patient to [facility] for induction of labor and monitoring. Patient delivered via cesarian section to healthy female 04/24/17. Post patient had elevation in creatine with gradual reduction today 0.71. Patient denies symptoms of fever, chills, nausea, vomiting, change in vision. Discharge Medications: Iron replacement 325 mg every day by mouth Colase 100 mg twice daily by mouth Tylenol 650 mg every 8 hours for pain Percocet every 6-8 hours by mouth for break through pain Continue vitamin Vitamin C once daily Disposition home Follow-up plan follow up at clinic in two weeks and 6 weeks Discharge Diet: No restrictions Discharge Activity-General: Pelvic Rest for 6 weeks, Pelvic Rest, Be up and about, Balance rest and activity, Ice incision 3-5 time/day for 20min, Activity as energy allows, No lifting >15 pounds for 2 weeks NITIN RAINES DO Apr 26, 2017 07:57
--- NOTE | 2017-04-26 08:02 | PCM.DIOB ---
Obstetrical Disch Instruction Date of Service: Apr 26, 2017 Dates of Hospitalization Date of Hospital Admission Apr 22, 2017 at 13:10 Providers Admitting Physician: Sebastian Garcia MD Primary Care Physician: Kylah Attending Physician: Sebastian Garcia MD Discharge Diagnosis Discharge Diagnosis s/p cesarian section delivery s/p preeclampsia with elevated creatine, resolved at time of discharge Problems: (1) Severe pre-eclampsia Status: Resolved ICD Code: O14.10 Diet Discharge Diet: No restrictions Activity Discharge Activity-General: Pelvic Rest for 6 weeks, Try not to overdue, Ice incision 3-5 time/day for 20min, No lifting >10 pounds for 4-6 weeks Dressing and Incisional Care Dressing Care: Allow Steri Stripes to fall off Hygiene: May shower, Wash incision with soap & water, DO NOT soak incision under water, NO bathtub, hot tub or whirlpool, Dermoplast spray, [place] pads Additional Instructions Discharge Instructions Follow up in [facility] clinic in two weeks and 6 weeks Iron replacement once daily Vitamin C daily Continue vitamins tylenol 650 mg every 8 hours for pain Percocet 5-325 mg every 6-8 hours for breakthrough pain Colase 100 mg twice daily for constipation Continue labetalol 200 mg twice daily for elevated blood pressure, call our office should you experience low blood pressure, dizziness, and stop medication , check blood pressure at home Call our office should your mood worsen, you experience depression, thoughts of self harm, harming others and seek emergency care. Follow Up Plan Follow Up Plan see above NITIN RAINES DO Apr 26, 2017 08:02
[2017-04-26] MEDS ORDERED: Acetaminophen PO (08:06)
[2017-04-26] MEDS ORDERED: DOCU-41 PO (08:06)
[2017-04-26] MEDS ORDERED: Ascorbic Acid PO (08:06)
[2017-04-26] MEDS ORDERED: LABE200T PO (08:06)
[2017-04-26] MEDS ORDERED: Lanolin TOPICAL (08:06)
[2017-04-26] MEDS ORDERED: FERR-74 PO (08:06)
[2017-04-26] MEDS ORDERED: OXYC1TAB24 PO (08:06)
[2017-04-26] MEDS: Ascorbic Acid 500 mg Tablet PO SCH (09:14)
[2017-04-27] MEDS: oxyCODONE-Acetamin 5-325 mg Tablet PO PRN ×2 (00:30→05:00)
--- NOTE | 2017-04-27 07:19 | PCM.PNOBPP ---
Subjective Date of Service Apr 27, 2017 Post : Primary Ceserean Delivery Visit History Patient is a 21 y.o. F , LMP 08/10/17, PARTHA 05/17/17 at [id number] admitted for induction of labor due to severe pre-eclampsia. History of major depression previously on Lamictal and prozac, patient restarted prozac 20 mg at 28 wks. Presented to [facility] 03/04/17 at 29wk for dizziness and noted to be pre- eclamptic. Started propranolol at 35wk for Bp 150's/110's, 35 wk US showed polyhydramnios FRANNIE 33, EFW 15% and induction scheduled for 37 weeks. Patient presented to [facility] 04/22/17 with complaints of headache, elevated BP 160's/80's, prot/cr ration 1.56, random protein 86, Cr 0.5, Wct 17, hgb 11.9 hct 34.7. Decision made to admit patient to [facility] for induction of labor and monitoring. Patient delivered via cesarian section to healthy infant female 04/24/17. Post patient had elevation in creatine with gradual reduction today 0.71. .Blood pressure over yesterday evening elevated 150/90's with increased swelling in hands and legs, patient baby was kept by pediatrics, decision made to observe both baby and mother overnight. Patient blood pressure today 116/59 on 200 mg labetalol BID.Patient denies symptoms of fever, chills, nausea, vomiting, change in vision. lochia light and swelling in hands and legs decreased from yesterday. Subjective Blood pressure over yesterday evening elevated 150/90's with increased swelling in hands and legs, patient baby was kept by pediatrics, decision made to observe both baby and mother overnight. Patient blood pressure today 116/59 on 200 mg labetalol BID.Patient denies symptoms of fever, chills, nausea, vomiting , change in vision. lochia light and swelling in hands and legs decreased from yesterday. Lochia: Normal Pain Management: PO pain meds Gastrointestinal: Good Appetite Postop Activity: Ambulating Independently Labs hgb 14.3 hct 42.4 rubella immune varicella immune RPR non reactive Hep B negative HIV neg hep C neg THS 0.502 A1C 5.6 UA neg GBS neg Ultra Sound 04/22/17 Presentation Vertex Placenta anterior right FRANNIE 22 BPP 03/22 EFW 89% 3533 g Group B Strep Results: Negative Blood Type: O (postive) Labs Laboratory Tests 04/22/17 11:19: Hematology Comments 04/25/17 17:37: Neutrophils (%) (Auto) 81.1, Lymphocytes (%) (Auto) 11.4, Monocytes (%) (Auto) 6.9, Eosinophils (%) (Auto) 0.2, Basophils (%) (Auto) 0.1 04/26/17 06:20: White Blood Count 17.0, Red Blood Count 3.44, Hemoglobin 10.1, Hematocrit 31.0, Mean Corpuscular Volume 90.1, Mean Corpuscular Hemoglobin 29.4, Mean Corpuscular Hemoglobin Concent 32.6, Red Cell Distribution Width 14.9, Platelet Count 192 Exam Vital Signs Vital Signs 36.7 98 116/59 20 99% RA Vital Signs: VS reviewed, stable Exam Abdomen: Fundus firm Perineum: Intact : Voiding without difficulty Extremities: Normal pulses, No tenderness/swelling, Edema 1+ Lungs: Clear to Auscultation, Normal Air Movement Heart: Regular Rate/Rhythm, Normal S1, Normal S2, No Murmurs/Rubs/Gallops General: Alert, Oriented X3, Cooperative, No Acute Distress Surgical Wound : Dressing & Drainage Status: Dry & Intact, No Odor, Foul Odor Noted OB Post Assessment/Plan Assessment The patient is 21-year-old, 2, para 0-0-1-0, at 36 weeks and 4 days gestational age. Admitted for induction of labor secondary to severe preeclampsia by blood pressure criteria. Problems: (1) Severe pre-eclampsia Plan: Continue routine post care Tylenol 625 mg PO Q8 hrs for pain Percocet 5-325 mg PO Q4-6hrs for breakthrough pain Hold ibuprofen as creatine doubled over 8 hours 04/24/17 Repeat BMP pending at time of exam Encourage PO fluid intake Sparks catheter removed this morning Vitals Q4 Anticipate discharge later today Status: Resolved ICD Code: O14.10 NITIN RAINES DO Apr 27, 2017 07:19
[2017-04-27] MEDS: Ascorbic Acid 500 mg Tablet PO SCH (07:49)
[2017-04-27 09:26] VITALS: BP 130/83; PULSE 96; RESP 17
[2017-04-27] MEDS ORDERED: Carboprost 250 mCg/mL Inj IM ONE (10:59)
--- NOTE | 2017-04-28 14:50 | PATH ---
SURGICAL PATHOLOGY Attending Physician:Charity Serrano, CASE STATUS: Signed Out PATIENT NAME: QUENTIN KELSEY PID: [id number] : 1995 DATE COLLECTED:04/24/2017 00:00 SPECIMEN: Placenta CLINICAL HISTORY: CAESAREAN SECTION, SEVERE PREECLAMPSIA, FAILED INDUCTION 1). PLACENTA FINAL DIAGNOSIS: Placenta, Section: - Amin placenta weighing 483 grams. - Three-vessel umbilical cord with no evidence of inflammation. - membranes with no evidence of inflammation. - Villous morphology appropriate for gestational age, with a focus of infarct. ICD10: O61.8 GROSS DESCRIPTION: The specimen is received in formalin, labeled with the patient's name, and consists of an intact placenta which includes the placental disc (483 g, 18.8 x 13.5 x 3.5 cm), membranes and umbilical cord (length-28.2 cm, diameter-1.3 x 1.0 cm). The membranes are ruptured 1.2 cm from the free edge of the placenta and are semitranslucent. The umbilical cord has a furcate insertion 2.5 cm from the edge of the placenta and contains 3 vessels. The surface is smooth and shiny with dilated raised vessels. No evidence of meconium is identified. The maternal surface is dark maroon with normal cotyledon formation. The placental body is spongy and contains a roberson solid firm fibrous area (1.7 x 1.5 x 1.1 cm) along the periphery 0.5 cm from the and involving the maternal surfaces. No nodules, masses, or hematomas are identified. Section code: (A) edge of placenta with membranes; (B) umbilical cord; (C-D, E-F, G-H, I) placenta, 4 full-thickness sections. 04/26/17 ICD-9 CODES: CPT CODES: 1: 04655 Electronically Signed Out Stephane Messer MD [facility] [address], [place] [address] Technical component performed at [facility], [address], [place], [address]
== END 2017-04-27 11:00 | disposition home or self-care (01) | DRG 766 ==
LOC: FBCO 10:00 → FBC 13:10
PROVIDERS: ADMIT Obstetrics & Gynecology; ATTEND Obstetrics & Gynecology
PROC: 3E0P7GC Introduction of Other Therapeutic Substance into Female Reproductive, Via Natural or Artificial Opening (ICD-10-PCS; 2017-04-22)
PROC: 10D00Z1 Extraction of Products of Conception, Low, Open Approach (ICD-10-PCS; principal; 2017-04-24 11:58)
DX: O14.14 Severe pre-eclampsia complicating childbirth (principal); E66.01 Morbid (severe) obesity due to excess calories; O99.214 Obesity complicating childbirth; Z3A.36 36 weeks gestation of pregnancy; Z37.0 Single live birth; O61.0 Failed medical induction of labor; O99.344 Other mental disorders complicating childbirth; F32.9 Major depressive disorder, single episode, unspecified; Z87.891 Personal history of nicotine dependence; O63.0 Prolonged first stage (of labor); Z68.54 Body mass index [BMI] pediatric, 95th percentile for age to less than 120% of the 95th percentile for age

== ENCOUNTER 2017-05-01 18:44 | Emergency (ER) | payer OTHER ==
[~2017-05-01] VITALS: Ht 149.9 cm; Wt 100.0 kg
[~2017-05-01 18:44] MED LIST: Acetaminophen PO; Ascorbic Acid PO; DOCU-41 PO; FERR-74 PO; LABE200T PO; Lanolin TOPICAL; OXYC1TAB24 PO
[2017-05-01 18:59] VITALS: BP 158/100; PULSE 100; RESP 16; O2SAT 98
--- NOTE | 2017-05-01 20:49 | ED.REPORT ---
HPI-General Illness Date of Service May 01, 2017 ED Provider: Bakari Rivera MD The patient is a 21 year old female presenting to the ED s/p 1 week ago complaining of post-op bleeding around the right side of her abdomen that began yesterday. She noticed bleeding yesterday where the curtis are located and described the blood as bright red with no associated pus or pain on that side. She said that the bleeding stopped on its own without intervention. She also reports that there are no notable exacerbating factors. She denies abnormal vaginal bleeding, chest pain, diaphoresis, fever, nausea, chills, SOB, headache, or vomiting. Nursing Notes Stated Complaint: C-SESCTION INCISION BLEEDING Chief Complaint: Female Abdominal Pain Nursing Notes Reviewed: Yes Allergies: Coded Allergies: No Known Allergies (Verified Allergy, Unknown, 05/01/17) Scheduled ([Ascorbic Acid]) 500 MG TABLET 500 MG PO DAILYWM Docusate Sodium (Colace) 100 Mg Capsule 100 MG PO BID Ferrous Sulfate (Feosol) 325 Mg Tablet 325 MG PO BIDWM Labetalol (Labetalol) 200 Mg Tablet 200 MG PO Q12H Scheduled PRN ([Acetaminophen]) 325 MG TABLET 650 MG PO Q6H PRN PRN For Mild Pain or Fever ([Lanolin]) 2 APPLIC/GM OINT 1 APPLIC TOPICAL DIRECTED PRN PRN for breast care oxyCODONE-Acetaminophen 5-325 mg (oxyCODONE-Acetaminophen 5-325 mg) 1 Each Tablet 1-2 TAB PO Q4H PRN PRN For Pain General Time Seen by MD: 19:49 Chief Complaint Other (bleeding from scar) Hx Obtained From: Patient Arrived By: Walk-in Sudden in Onset?: No Onset Occurred: Yesterday Symptom Duration: Since onset Location: : Abdomen (Discomfort associated with post-op wound) Quality: Painful, Sharp Radiation: : Does not radiate Severity: Current: Mild Severity: Maximum: Moderate Pertinent Negative: Pt denies other symptoms Recent Healthcare: Recent doctor visit, Recent hospitalization Similar Sx Previous: No Past Medical History Past Medical History None reported. Past Surgical History Smoking History Former Smoker Social History Other Social History: Good social support, Local resident Ambulatory Status Independent Review of Systems +bleeding from scar, right side Full Review of Systems Constitutional: Denies: Chills, Fever Respiratory: Denies: Shortness of breath Cardiovascular: Denies: Chest pain GI: Reports: Abdominal pain (Discomfort associated with post op wound), Denies: Nausea, Vomiting Female: Denies: Vaginal bleeding - abnl Skin: Denies Diaphoresis Neurologic: Denies: Headache Complete sys rev & neg: except as marked. Physical Exam Nursing note and vitals reviewed. Constitutional: Well-developed, well-nourished. Not diaphoretic. Head: Normocephalic and atraumatic. Mouth/Throat: Oropharynx is clear and moist. No oropharyngeal exudate. Eyes: EOM are normal. Pupils are equal, round, and reactive to light. Neck: Supple, no tracheal deviation. Cardiovascular: Normal rate, regular rhythm. Equal and intact distal pulses throughout. Pulmonary/Chest: Effort normal and breath sounds normal. No respiratory distress. Abdominal: Soft. No distension. There is no tenderness, rebound, or guarding. Bowel sounds present. Musculoskeletal: Range of motion grossly intact, moving all extremities. No edema or tenderness appreciated. Neurological: AOx3. Grossly nonfocal exam. Strength and sensation intact and equal to bilateral upper and lower extremities. Skin: Warm and dry, no rashes or pallor appreciated. Well-healing surgical scar to lower abdomen with no active drainage, bleeding, purulence. No evidence of wound dehiscence. No induration or fluctuance. Psychiatric: Appropriate mood and affect. Behavior appears normal. Vital Signs Vital Signs Date Time Temp Pulse Resp B/P Pulse Ox O2 Delivery O2 Flow Rate FiO2 05/01/17 21:33 36.4 96 16 131/86 98 Room Air 05/01/17 18:59 37.1 100 16 158/100 98 Room Air Re-Eval/Medical Decision Med Decision/Clinical Course Well-appearing 21-year-old female presenting to the ED for evaluation after noticing some bleeding from her incision site. Upon my evaluation, this has resolved and there is no active bleeding. No signs of infection. No wound dehiscence. The wound appears to be healing well and is clean, dry, and intact. She has no abdominal tenderness to palpation. No redness or erythema, nor fluctuance or induration around the incision site. She has an appointment with her COMPUTER PROGRAMMER ANALYST tomorrow. Given reassuring exam, reasonable to discharge home with careful return precautions, follow-up tomorrow. Patient agreeable to the plan as stated, no further questions. Time of Eval: 20:50 Patient Status: Condition improved Re-Evaluation/Progress Note: Patient rechecked. Discussed plan to discharge. Patient understands and agrees with plan. All questions addressed at this time. Counseled Regarding: Diagnosis, Need for follow-up, When/why to return to ED Discharge & Departure Primary Impression: Wound infection/hemorrhage, obstetric surgical, condition Disposition: Home Discharge Condition All VS Reviewed: Yes Condition: Improved Patient Instructions: (GEN), Wound Healing and Your Diet (ED) Additional Instructions: Please follow-up with your primary obstetric provider tomorrow as discussed. Return to the ED if he develops any bleeding, abdominal pain, drainage from the wound, or if there is anything else of concern to you. Referrals: NOPCP (PCP) Zhen Canas MD Attestation Portions of this note were transcribed by Katya Israel and Murphy Richards. I, Dr. Rivera personally performed the history, physical exam and medical decision-making; I reviewed and confirmed the accuracy of the information in the transcribed note. Signed by: Oswald Wilde, 05/01/2017 Signed by: Oswald Skaggs, 05/01/17. Bakari Rivera MD May 01, 2017 20:48 May 01, 2017 21:17 KATYA ISRAEL May 01, 2017 23:08
[2017-05-01 21:33] VITALS: BP 131/86; PULSE 96; RESP 16; O2SAT 98
== END 2017-05-01 21:34 | disposition home or self-care (01) ==
LOC: SED 18:44
DX: O86.0 Infection of obstetric surgical wound (principal); Z87.891 Personal history of nicotine dependence